=== PATIENT | male | born 1985 | race Caucasian/White ===

== ENCOUNTER 2016-12-29 11:33 | Emergency (ER) | payer OTHER ==
[~2016-12-29] VITALS: Ht 182.9 cm; Wt 70.2 kg
[2016-12-29 11:36] VITALS: BP 117/66
[2016-12-29] MEDS ORDERED: HYDROmorphone 1 MG/ML, 1ML ONE (12:14)
[2016-12-29] MEDS ORDERED: LIDOCAINE 1%, 20ML ONE (12:15)
[2016-12-29] MEDS ORDERED: HYDROmorphone 1 MG/ML, 1ML IM ONE (12:30)
[2016-12-29] MEDS ORDERED: LIDOCAINE 1%, 20ML INFIL ONE (12:30)
[2016-12-29] MEDS ORDERED: DIPH,PERTUSS(ACELL),TET VAC/PF NC IM-VACC ONE (13:00)
[2016-12-29] MEDS ORDERED: DIPH,PERTUSS(ACELL),TET VAC/PF 0.5 ML IM-VACC ONE ×3 (13:30→14:41)
[2016-12-29] MEDS ORDERED: BACITRACIN ZINC OINT 500U/GM, 0.9 GM ONE (14:12)
== END 2016-12-29 14:54 | disposition home or self-care (01) ==
LOC: ED 11:54
DX: S61.412A Laceration without foreign body of left hand, initial encounter (principal); W27.8XXA Contact with other nonpowered hand tool, initial encounter; Y93.89 Activity, other specified; Y99.8 Other external cause status; Y92.009 Unspecified place in unspecified non-institutional (private) residence as the place of occurrence of the external cause
CPT/HCPCS: 12002; 90471; 90715; 96372; 99283; J1170